=== PATIENT | female | born 1940 | race Two or more races ===

== ENCOUNTER 2020-05-02 13:37 | Outpatient (CLI) | payer OTHER | END 2020-05-02 14:20 | disposition home or self-care (01) | LOC: SONOGRAMA 13:37 | PROVIDERS: ATTEND Obstetrics & Gynecology Maternal & Fetal Medicine | DX: Q51.818 Other congenital malformations of uterus (principal); N95.0 Postmenopausal bleeding ==

== ENCOUNTER → 2020-06-18 | Emergency (ER) | payer OTHER ==
[~2020-06-18] VITALS: Ht 160 cm; Wt 72.6 kg
[~2020-06-18] MED LIST: CLONAZEPAM0.5 MG; LIPITOR20 MG; PEPCID AC20 MG; PLAVIX75 MG; PROTONIX20 MG; VASOTEC2.5 MG
== END | disposition left against medical advice (07) ==
LOC: ER 12:09 → EDBD 12:55 → ER 12:55
DX: R04.0 Epistaxis (principal); D62 Acute posthemorrhagic anemia